=== PATIENT | female | born 1980 | race Caucasian/White ===

== ENCOUNTER 2018-07-08 15:16 | Emergency (ER) | payer MEDICAID ==
[~2018-07-08] VITALS: Ht 167.6 cm; Wt 69.8 kg
[~2018-07-08 15:16] MED LIST: PREN1TAB49 PO
[2018-07-08 15:20] VITALS: Ht 167.6 cm; Wt 69.8 kg
[2018-07-08] MEDS ORDERED: METOCLOPRAMIDE 10 MG TAB PO ONE (16:30)
[2018-07-08] MEDS ORDERED: DIPHENHYDRAMINE 2.5 MG/ML 5ML CUP PO ONE (16:30)
[2018-07-08] MEDS ORDERED: KETOROLAC 60 MG INJ IM STA (16:30)
[2018-07-08] MEDS ORDERED: ACETAMINOPHEN 500 MG TAB PO STA (16:30)
--- NOTE | 2018-07-08 16:53 | ERD ---
ER Documentation Chief Complaint Chief Complaint Complains of headache and back pain x3 HPI History of Present Illness: Patient coming in today with complaint of headache for 3 days. Patient describes gradual onset headache as pressure, throbbing, 5 of 10 in severity. Associated symptoms includes photophobia, phonophobia, intermittent nausea. Patient also reporting left lower back pain that has also been present for 3 days; associated symptoms include dysuria. At home pharmacological/nonpharmacological treatment for symptoms: none Denies social concerns; Denies recent foreign travel ROS All systems reviewed and are negative except as per history of present illness. Medications Home Meds Active Scripts Ciprofloxacin Opht* (Ciloxan*) 0.3%-3.5 Opht Oint, 1 APPLIC BOTH EYES Q2HWA for eye infection for 7 Days, EA Prov:BOZENA BENITO V SKI TECHNICIAN 07/08/18 Prednisolone Acetate* (Pred Forte*) 5 Ml Susp, 1 DROP LEFT EYE QID for eye discomfort, #1 EA Prov:BOZENA BENITO V SKI TECHNICIAN 07/08/18 Acetaminophen/Aspirin/Caffeine* (Excedrin*) 1 Tab Tab, 2 TAB PO DAILY for migraine headache, #15 TAB Prov:BOZENA BENITO V SKI TECHNICIAN 07/08/18 Nitrofurantoin Monohyd Macrocr* (Macrobid*) 100 Mg Capsr, 100 MG PO BID for urine infection for 5 Days, CAP Prov:BOZENA BENITO NP 07/08/18 Reported Medications Vits W-Ca,Fe,Fa(<1MG) () 1 Tab Tablet, 1 TAB PO DAILY 11/12/10 Allergies Allergies: Coded Allergies: No Known Allergies (Verified Allergy, Mild, 11/12/10) PMhx/Soc Medical and Surgical Hx: pt denies Medical Hx, pt denies Surgical Hx Hx Alcohol Use: No Hx Substance Use: No Hx Tobacco Use: No Smoking Status: Never smoker FmHx Family History: No diabetes, No coronary disease Physical Exam Vitals Vital Signs Date Temp Pulse Resp B/P (MAP) Pulse Ox O2 O2 Flow FiO2 Time Delivery Rate 07/08/18 98.3 65 16 113/68 100 Room Air 19:30 (83) 07/08/18 98.6 101 20 122/66 100 15:20 (84) Physical Exam Const: No acute distress, afebrile Head: Atraumatic Eyes: Normal Conjunctiva ENT: Normal External Ears, Nose and Mouth. Neck: Full range of motion. No meningismus. Resp: Clear to auscultation bilaterally Cardio: Regular rate and rhythm, no murmurs Abd: Soft, non tender, non distended. No guarding, no masses, no rigidity Skin: No petechiae or rashes Back: No midline or flank tenderness. No CVA tenderness. Musculoskeletal tenderness to palpation to left lumbar. Ext: No cyanosis, or edema Neur: Awake and alert x3, speaking in clear sentences, no focal deficits or facial asymmetry Psych: Normal Mood and Affect Results 24 hrs Laboratory Tests Test 07/08/18 16:45 07/08/18 16:47 Urine Color YELLOW Urine Clarity CLEAR Urine pH 6.0 Urine Specific [place] 1.013 Urine Ketones NEGATIVE mg/dL Urine Nitrite NEGATIVE mg/dL Urine Bilirubin NEGATIVE mg/dL Urine Urobilinogen NEGATIVE mg/dL Urine Leukocyte Esterase TRACE Tamiko/ul Urine Microscopic RBC 1 /HPF Urine Microscopic WBC 3 /HPF Urine Squamous Epithelial Cells FEW /HPF Urine Bacteria FEW /HPF Urine Mucus FEW /HPF Urine Hemoglobin NEGATIVE mg/dL Urine Glucose NEGATIVE mg/dL Urine Total Protein NEGATIVE mg/dl POC Beta HCG, Qualitative NEGATIVE Current Medications Medications Dose Sig/Cece Start Time Status Last (Trade) Ordered Route PRN Stop Time Admin Dose Reason Admin Ketorolac 60 mg ONCE STAT 07/08/18 DC 07/08/18 Tromethamine IM 16:30 16:52 (Toradol) 07/08/18 16:33 10 mg ONCE ONCE 07/08/18 DC 07/08/18 Metoclopramid PO 16:30 16:51 e HCl 07/08/18 16:33 (Reglan) 12.5 mg ONCE ONCE 07/08/18 DC 07/08/18 Diphenhydrami PO 16:30 16:51 ne HCl 07/08/18 16:33 (Benadryl Liquid Cup) 1,000 mg ONCE STAT 07/08/18 DC 07/08/18 Acetaminophen PO 16:30 16:51 (Tylenol 07/08/18 16:33 Tab) Tramadol 50 mg ONCE ONCE 07/08/18 DC HCl PO 19:00 (Ultram) 07/08/18 19:01 Fluorescein 1 strip ONCE ONCE 07/08/18 DC 07/08/18 Sodium LEFT EYE 19:00 19:13 (Pfdaq-F-Snrk 07/08/18 19:01 p) Tetracaine 1 drop ONCE ONCE 07/08/18 DC 07/08/18 HCl LEFT EYE 19:00 19:13 (Tetracaine 07/08/18 19:01 0.5% Steri-Unit Charu) Procedures/MDM ED course includes a thorough examination and history. ED course includes medication; acetaminophen, Toradol, diphenhydramine, Reglan. ED course includes lab testing; urinalysis and urine . Low suspicion for life-threatening medical emergency or or neurological/genitourinary emergency that requires hospitalization or any intervention. Otherwise healthy patient presenting with constellation of symptoms likely representing migraine/UTI/corneal abrasion as characterized by history, physical exam findings, lab findings. negative. Urinalysis showing WBCs and bacteria and leukocyte esterase. Eye Exam w/ Wood's Lamp - bilateral: Visual Acuity: See nursing note; decreased visual acuity to right eye Visual Ken: Intact in all four quadrants bilaterally Lac ducts/glands: No swelling Lids w/ evertion: Normal, no foreign body Conj/[place]: Clear, negative Gurpreet's; fluorescein reuptake to right corneal at approximately 8:00 of eye No respiratory distress, otherwise relatively well appearing and nontoxic. Patient educated on diagnoses, prescriptions, follow-up care, return precautions. Strict return precautions given for worsening condition; questions answered discharge. Disposition for discharge with followup in 2 days with PCP/clinic. Disclaimer: Inadvertent spelling and grammatical errors are likely due to EHR/dictation software use and do not reflect on the overall quality of patient care. Also, please note that the electronic time recorded on this note does not necessarily reflect the actual time of the patient encounter. Departure Diagnosis: Primary Impression: Headache Headache type: unspecified Headache chronicity pattern: acute headache Intractability: intractable Qualified Codes: R51 - Headache Additional Impressions: Corneal abrasion due to contact lens Laterality: right Qualified Codes: H18.821 - Corneal disorder due to contact lens, right eye Bacteria in urine Musculoskeletal back pain Condition: Stable BOZENA BENITO NP Jul 08, 2018 16:53
[2018-07-08] MEDS ORDERED: EXCED PO (18:44)
[2018-07-08] MEDS ORDERED: PRED5DRO20 LEFT EYE (18:44)
[2018-07-08] MEDS ORDERED: CPR3OO3.5 BOTH EYES (18:44)
[2018-07-08] MEDS ORDERED: NITR-58 PO (18:44)
[2018-07-08] MEDS ORDERED: traMADol 50 MG TAB PO ONE (19:00)
[2018-07-08] MEDS ORDERED: TETRACAINE 0.5% 4 ML OPH LEFT EYE ONE (19:00)
[2018-07-08] MEDS ORDERED: FLUORESCEIN STRIP LEFT EYE ONE (19:00)
[2018-07-08 19:30] VITALS: BP 113/68; PULSE 65; RESP 16
== END 2018-07-08 19:30 | disposition home or self-care (01) ==
LOC: FTE 15:16
DX: H18.821 Corneal disorder due to contact lens, right eye (principal); N39.0 Urinary tract infection, site not specified; M79.18 Myalgia, other site
CPT/HCPCS: 81001; 81025; 96372; J1885; Z7502; Z7610